=== PATIENT | male | born 1975 | race Caucasian/White ===

== ENCOUNTER 2019-10-28 14:59 | Emergency (ER) | payer SELFPAY ==
[~2019-10-28] VITALS: Ht 180.3 cm; Wt 78.0 kg
--- NOTE | 2019-10-28 15:09 | NUR ---
PT BIB [facility] AFTER BEING FOUND WALKING ON [employer]. PT DENIES ANY MEDICAL NEED, [facility] EXPRESSED SOME CONCERN FOR DEHYDRATION. [facility] ALSO NOTED PT HAS NO MEDICAL HISTORY, BUT BS WAS 234. PT CALM, COOPERATIVE, DENIES ANY NEEDS. PT OFFERED BOTTLED WATER, DENIES, STATES "I'VE ALREADY HAD 2".
--- NOTE | 2019-10-28 16:16 | NUR ---
PT GIVEN WATER TO DRINK FOR PO CHALLANGE. WILL CONTINUE TO MONITOR. PT REFUSED WATER EARLIER FROM ASSIST RN.
--- NOTE | 2019-10-28 16:45 | NUR ---
PT ABLE TO DRINK WATER, NO C/O NAUSEA, ERP AWARE. PT RESTING COMFORTABLY IN BED WITH EYES CLOSED. PT AROUSES EASILY TO VERBAL STIMULI.
[2019-10-28 17:14] VITALS: BP 103/65
== END 2019-10-28 17:15 | disposition home or self-care (01) ==
LOC: ED 15:46
DX: E86.0 Dehydration (principal); Z59.0 Homelessness
CPT/HCPCS: 82962; 99283